=== PATIENT | male | born 1970 | race Caucasian/White ===

== ENCOUNTER → 2020-04-12 | Outpatient (CLI) | payer OTHER ==
[~2020-04-12] MED LIST: ANTIVERT/2525 MG PO; BENTYL20 MG PO; CIPRODEX 0.3%-7.5 ML OT; MEDROL DOSEPAK4 MG PO; ZITHROMAX Z PA250 MG PO
== END | disposition home or self-care (01) ==
LOC: COVID19 11:03
PROVIDERS: ATTEND Family Medicine
DX: U07.1 COVID-19 (principal)